=== PATIENT | male | born 1975 | race American Indian/Alaskan Native ===

== ENCOUNTER 2016-07-29 12:22 | Emergency (ER) | payer SELFPAY ==
[2016-07-29] MEDS ORDERED: ASPIRIN PO ONE (13:57)
--- NOTE | 2016-07-29 13:57 | Emergency Department Report ---
Chief Complaint: Chest Pain Stated Complaint: CHEST PAIN Time Seen by Provider: 07/29/16 13:53 - HPI History of Present Illness: Patient is a 41 yo male who presents due to left chest pain x 2 days, patient states he has intermittent chest pain. Patient states the pain moves around in his left chest. Patient states he has chest pain at rest and exertion. No PMH. - ROS Review of Systems: No nausea, vomiting. Patient admits of diaphoresis, he also admits of left arm pain - Exam Vital Signs: Vital Signs 07/29/16 13:26 Temperature 98.4 F Pulse Rate 77 Respiratory 18 Rate Blood Pressure 127/79 O2 Sat by Pulse 100 Oximetry Physical Exam: NAD, vital signs WNL MSE screening note: Focused history and physical exam performed. Due to findings the following was ordered:CHEST PAIN PROTOCOL ED Disposition for MSE Condition: Stable
[2016-07-29 14:49] LABS: Basophils % (Auto) 0.6 % (0.0-1.8); Eosinophils % (Auto) 1.8 % (0.0-4.3); Hematocrit 45.8 % (35.5-45.6); Hemoglobin 15.3 gm/dl (11.8-15.2); Mean Corpuscular HGB Conc 33 % (32-34); Mean Corpuscular Hemoglobin 33 pg (28-32); Mean Corpuscular Volume 99 fl (84-94); Platelet Count 344 K/mm3 (140-440); Red Blood Count 4.64 M/mm3 (3.65-5.03); Red Cell Distribution Width 14.6 % (13.2-15.2); White Blood Count 9.3 K/mm3 (4.5-11.0)
--- NOTE | 2016-07-29 14:49 | XRay Report ---
ROUTINE CHEST, TWO VIEWS: HISTORY: chest pain. The trachea, heart, mediastinal contour, lung bean and bony thorax are unremarkable. IMPRESSION: Unremarkable chest x-ray.
[2016-07-29 14:58] LABS: INR 1.01 (0.87-1.13)
[2016-07-29 14:59] LABS: Partial Thromboplastin Time 28.6 Sec. (24.2-36.6)
[2016-07-29 15:09] LABS: Alanine Aminotransferase 20 units/L (7-56); Albumin 4.5 g/dL (3.9-5); Albumin/Globulin Ratio 1.6 %; Alkaline Phosphatase 60 units/L (35-129); Anion Gap 17 mmol/L; Bilirubin,Total 0.4 mg/dL (0.1-1.2); Blood Urea Nitrogen 12 mg/dL (9-20); Calcium 9.2 mg/dL (8.4-10.2); Carbon Dioxide 25 mmol/L (22-30); Chloride 100.4 mmol/L (98-107); Creatine Kinase 106 units/L (55-170); Creatine Kinase MB < 1.0 ng/mL (0.0-4.0); Glucose 97 mg/dL (75-100); Potassium 4.5 mmol/L (3.6-5.0); Sodium 138 mmol/L (137-145); Total Protein 7.3 g/dL (6.3-8.2)
[2016-07-29 23:18] VITALS: BP 111/57
--- NOTE | 2016-07-29 23:27 | Emergency Department Report ---
ED Chest Pain HPI - General Chief Complaint: Chest Pain Stated Complaint: CHEST PAIN Time Seen by Provider: 07/29/16 23:17 Source: patient Mode of arrival: Ambulatory Limitations: No Limitations - History of Present Illness Initial Comments: 41-year-old male presents to the emergency department complaining of chest pain. Patient reports 2 days of intermittent discomfort in the middle of his chest and fluttering to the left side of his chest. Symptoms resolved spontaneously. He denies associated shortness of breath, diaphoresis, dizziness , nausea, or vomiting. There are no other complaints. MD Complaint: chest pain -: Gradual, days(s) (2) Onset: during rest Pain Location: substernal, left chest Pain Radiation: none Severity: mild Severity scale (0 -10): 2 Quality: other (discomfort) Consistency: intermittent, now resolved Improves With: nothing Worsens With: nothing re: denies: nausea, vomting, diaphoresis, dyspnea Other Symptoms: palpitations Treatments Prior to Arrival: none Aspirin use within the Past 7 Days: (0) No - Related Data Allergies Allergy/AdvReac Type Severity Reaction Status Date / Time No Known Allergies Allergy Unverified 07/29/16 13:29 IWONA score - Iwona Score Age > 65: (0) No Aspirin use within the Past 7 Days: (0) No 3 or more CAD Risk Factors: (0) No 2 or more Angina events in past 24 hrs: (0) No Known CAD with more than 50% Stenosis: (0) No Elevated Cardiac Markers: (0) No ST Deviation Greater than 0.5mm: (0) No IWONA Score: 0 ED Review of Systems ROS: Stated complaint: CHEST PAIN Other details as noted in HPI Comment: All other systems reviewed and negative Cardiovascular: chest pain ED Past Medical Hx - Past Medical History Previous Medical History?: No - Surgical History Past Surgical History?: No - Family History Family history: cancer, diabetes - Social History Smoking Status: Current Every Day Smoker Substance Use Type: Alcohol ED Physical Exam - General Limitations: No Limitations General appearance: alert, in no apparent distress - Head Head exam: Present: atraumatic, normocephalic - Eye Eye exam: Present: normal appearance, PERRL, EOMI - ENT ENT exam: Present: normal exam, normal orophraynx, mucous membranes moist - Neck Neck exam: Present: normal inspection, full ROM. Absent: tenderness - Respiratory Respiratory exam: Present: normal lung sounds bilaterally. Absent: respiratory distress, chest wall tenderness - Cardiovascular Cardiovascular Exam: Present: regular rate, normal rhythm, normal heart sounds - GI/Abdominal GI/Abdominal exam: Present: soft, normal bowel sounds. Absent: distended, tenderness - Extremities Exam Extremities exam: Present: normal inspection, full ROM. Absent: tenderness - Back Exam Back exam: Present: normal inspection, full ROM. Absent: tenderness - Neurological Exam Neurological exam: Present: alert, oriented X3. Absent: motor sensory deficit - Skin Skin exam: Present: warm, dry, intact ED Course Vital Signs 07/29/16 07/29/16 13:26 23:14 Temperature 98.4 F Pulse Rate 77 64 Respiratory 18 16 Rate Blood Pressure 127/79 Blood Pressure 111/57 [Left] O2 Sat by Pulse 100 95 Oximetry ED Medical Decision Making - Lab Data Result diagrams: 07/29/16 14:29 07/29/16 14:29 - EKG Data -: EKG Interpreted by Ct EKG shows normal: sinus rhythm, axis, intervals, QRS complexes, ST-T waves Rate: normal - EKG Data When compared to previous EKG there are: previous EKG unavailable Interpretation: normal EKG - Radiology Data Radiology results: report reviewed, image reviewed Chest x-ray shows no acute cardiopulmonary abnormality. - Medical Decision Making Lab and imaging results reviewed and discussed with the patient. Patient has remained symptom free in the emergency department. He has had 3 negative troponins and a nonischemic ECG. His only cardiac risk factor is smoking. Patient will be discharged home at this time to follow up with his primary care physician. - Differential Diagnosis ACS, atypical chest pain, chest wall pain Critical care attestation.: If time is entered above; I have spent that time in minutes in the direct care of this critically ill patient, excluding procedure time. ED Disposition Clinical Impression: Non-cardiac chest pain Disposition: DISCHARGED TO HOME OR SELFCARE Is pt being admited?: No Condition: Stable Instructions: Chest Pain (ED) Referrals: JERI PATEL MD [Staff Physician] - 3-5 Days Time of Disposition: 23:27
== END 2016-07-29 23:53 | disposition home or self-care (01) ==
LOC: ED 12:22
DX: R07.89 Other chest pain (principal); F17.200 Nicotine dependence, unspecified, uncomplicated
CPT/HCPCS: 36415; 71020; 80053; 82550; 82553; 84484; 85025; 85610; 85730; 93005; 93010

== ENCOUNTER 2018-12-21 00:29 | Emergency (ER) | payer OTHER ==
[2018-12-21 00:34] VITALS: BP 120/76
[2018-12-21] MEDS ORDERED: DELTASONE PO STA (03:00)
[2018-12-21] MEDS ORDERED: BENADRYL PO STA (03:01)
--- NOTE | 2018-12-21 03:07 | Emergency Department Report ---
ED Rash HPI - HPI Chief Complaint: Skin Rash Stated Complaint: BODY RASH Time Seen by Provider: 12/21/18 02:41 Location: Chest, Abdomen, Upper Extremities Suspected Cause: Unknown Rash Symptoms: Yes Itching, No Facial Swelling, No Tongue/Oral Swelling, No Choking Sensation, No Wheezing/Dyspnea, No Peeling, No Blistering, No Fever, No Lightheaded, No Malaise, No Myalgias Severity: mild Other History: 43-year-old male presents complaining of a pruritic rash that started about 2 hours ago from an unknown source. Reports no coughing, wheezing, lip swelling, dyspnea, dysphasia. ED Review of Systems ROS: Stated complaint: BODY RASH Other details as noted in HPI Constitutional: denies: chills, fever Eyes: denies: eye pain, eye discharge, vision change ENT: denies: ear pain, throat pain Respiratory: denies: cough, shortness of breath, wheezing Cardiovascular: denies: chest pain, palpitations Endocrine: no symptoms reported Gastrointestinal: denies: abdominal pain, nausea, diarrhea Genitourinary: denies: urgency, dysuria Musculoskeletal: denies: back pain, joint swelling, arthralgia Skin: denies: rash, lesions Neurological: denies: headache, weakness, paresthesias Psychiatric: denies: anxiety, depression Hematological/Lymphatic: denies: easy bleeding, easy bruising ED Past Medical Hx - Past Medical History Previous Medical History?: No - Surgical History Past Surgical History?: No - Social History Smoking Status: Current Every Day Smoker Substance Use Type: Alcohol - Medications Home Medications: Home Medications Medication Instructions Recorded Confirmed Last Taken Type Ibuprofen [Motrin] 800 mg PO Q8HR #30 tablet 04/22/18 Unknown Rx Famotidine [Pepcid] 40 mg PO DAILY #14 tablet 12/21/18 Unknown Rx hydrOXYzine HCL [Atarax] 25 mg PO Q6HR PRN #20 tablet 12/21/18 Unknown Rx predniSONE [Deltasone] 50 mg PO QDAY #5 tab 12/21/18 Unknown Rx Rash Exam - Exam General: Vital signs noted. No distress. Alert and acting appropriately. HEENT: No Periorbital Edema, No Conjuctival Injection, No Chemosis, No Perioral Edema, No Tongue Edema, No Uvular Edema, No Compromised Airway, No Drooling Lungs: Yes Good Air Exchange (Normal Breath Sounds), No Wheezes, No Ronchi, No Stridor, No Cough, No Labored Respirations, No Retractions, No Use of Accessory Muscles, No Other Abnormal Lung Sounds Heart: Yes Regular, No Murmur Skin: Yes Urticarial Rash (diffuse), No Tenderness, No Erythema, No Edema, No Encrustations, No Other Other: Positive: Abdomen Normal, Neurologic Normal, Musculoskeletal Normal ED Course Vital Signs 12/21/18 00:32 Temperature 97.8 F Pulse Rate 74 Respiratory 18 Rate Blood Pressure 120/76 O2 Sat by Pulse 96 Oximetry Critical care attestation.: If time is entered above; I have spent that time in minutes in the direct care of this critically ill patient, excluding procedure time. ED Disposition Clinical Impression: Hives Disposition: DC-01 TO HOME OR SELFCARE Is pt being admited?: No Does the pt Need Aspirin: No Condition: Stable Instructions: Urticaria (ED) Referrals: RICKY ROMAN MD [Primary Care Provider] - 3-5 Days
== END 2018-12-21 03:39 | disposition home or self-care (01) ==
LOC: ED 00:29
DX: L50.9 Urticaria, unspecified (principal); F17.200 Nicotine dependence, unspecified, uncomplicated; Z79.899 Other long term (current) drug therapy; Z91.013 Allergy to seafood
CPT/HCPCS: 99282; J7512

== ENCOUNTER 2019-09-08 10:04 | Emergency (ER) | payer OTHER | END 2019-09-08 10:45 | disposition left against medical advice (07) | LOC: ED 10:04 | DX: J02.9 Acute pharyngitis, unspecified (principal); Z53.21 Procedure and treatment not carried out due to patient leaving prior to being seen by health care provider ==